=== PATIENT | female | born 1995 | race Caucasian/White ===

== ENCOUNTER 2019-03-19 09:33 | Outpatient (CLI) | payer BC ==
--- NOTE | 2019-03-19 10:29 | RAD ---
CERVICAL SPINE 3 VIEWS: HISTORY: Followup cervical fracture. FINDINGS: Exam includes neutral, flexion, and extension lateral views only. COMPARISON: None. FINDINGS: No evidence for significant malalignment. No significant prevertebral soft tissue swelling. There i s very little patient movement between flexion and extension. No overt malalignment. IMPRESSION: No overt malalignment. Very little movement between flexion and extension. No prevertebral soft tis liz swelling. No old studies available for comparison. POS: OFF
== END 2019-03-19 09:34 | disposition home or self-care (01) ==
LOC: TBSIIMAG 09:33
PROVIDERS: ATTEND Neurological Surgery
DX: S12.9XXA Fracture of neck, unspecified, initial encounter (principal)
CPT/HCPCS: 72040